=== PATIENT | female | born 1940 | race Caucasian/White ===

== ENCOUNTER 2018-02-25 10:23 | Outpatient (CLI) | payer MEDICARE ==
--- NOTE | 2018-02-25 13:47 | XRay Report ---
BILATERAL KNEES STANDING, AP VIEW History: Osteoarthritis, pain. Findings: Right knee replacement has been performed. The hardware is well aligned. No fracture or malalignment is identified. Moderate to severe osteoarthritic changes are identified in the left knee. There is near-complete loss of joint space in the medial compartment. No fracture or bone lesion is identified. Impression: Stable appearance of the right knee prosthesis. Moderate to severe osteoarthritis in the left knee.
== END 2018-02-25 10:24 | disposition home or self-care (01) ==
LOC: XRAY 10:23
PROVIDERS: ATTEND Orthopaedic Surgery
DX: M17.12 Unilateral primary osteoarthritis, left knee (principal); M25.561 Pain in right knee
CPT/HCPCS: 73565